=== PATIENT | male | born 1970 | race Caucasian/White ===

== ENCOUNTER → 2020-02-03 12:35 | Outpatient (CLI) | payer BC, SELFPAY ==
[2020-02-03 16:27] LABS: Coronavirus 19 IgG Antibody Negative (Negative); Coronavirus 19 IgM Antibody Negative (Negative)
== END ==
PROVIDERS: Visit Provider Internal Medicine Gastroenterology
DX: Z01.818 Encounter for other preprocedural examination (principal); Z12.11 Encounter for screening for malignant neoplasm of colon
CPT/HCPCS: 36415; 86328

== ENCOUNTER 2020-02-05 07:14 | Day surgery (SDC) | payer BC, SELFPAY ==
[2020-02-03 13:47] VITALS: BMI 31.3
[2020-02-05] VITALS (7 sets, daily range): BP systolic 114–142; BP diastolic 66–93; PULSE 69–90; RESP 18; TEMP 36.3–36.8; O2SAT 95–98
--- NOTE | 2020-02-05 08:42 | HMH.PROC ---
[facility] Procedure Note Procedure Note:: Colonoscopy Procedure Report: Colonoscopy with cold snare polypectomy and hemorrhoid band ligation Endoscopist: Jensen Hobbs II, MD Referring physician: ROSIE Collazo/Mohamud Page MD Date of Procedure: February 05, 2020 Equipment: Olympus 180 variable stiffness pediatric colonoscope Sedation: MAC sedation Indication: Mr. Patel is a 49-year-old gentleman who reports bright red rectal bleeding for the last 6 months. This is blood that he notes both coating the stool and on the toilet tissue. It is not generally mixed in with the stool. He does report primarily diarrhea with loose to watery stools. He will occasionally have firmer hard bowel movements. He does report moderate gassiness and bloating. He reports no significant abdominal pain but did have some pain this past week with his bleeding. He reports no weight loss or family history of colon cancer. He reports no family history of colitis or Crohn's disease. This is his first colonoscopy. Procedure: Prior to the procedure, a history and physical exam was performed, and patient's medications and allergies were reviewed. The risks, benefits and alternatives of the sedation and procedure were discussed with the patient. All questions were answered and informed consent was obtained. The patient was brought to the procedure room. Patient identification and proposed procedure were verified by the physician and the nurse. The patient was placed in a left lateral decubitus position and the scope was passed under direct vision. Throughout the procedure, the patient's blood pressure, pulse, and oxygen saturations were monitored continuously. The colonoscopy was accomplished without difficulty. The patient tolerated the procedure well. Findings: On digital rectal examination there was normal rectal tone. There were no external hemorrhoids but there was an external hemorrhoidal tag. The prostate was 2-3+, mildly firm but symmetric without nodules. The colonoscope was introduced through the anal canal to the rectum and advanced to the cecum. The ileocecal valve and appendiceal orifice were identified. The scope was advanced a short distance into the ileum which appeared grossly normal. The scope was then withdrawn into the colon. The cecum had a single 6 mm polyp and there was a second 3 mm transverse colon polyp both of which were removed via cold snare polypectomy. There were mildly scattered diverticuli throughout the colon. The remainder of the colonic mucosa was normal. The rectum itself was normal. Upon retroflexion within the rectum there were grade 2 internal hemorrhoids. 3 columns of hemorrhoids were banded using 3 bands with excellent ligation effect. The preparation was excellent throughout with Snelling Preparation Score of 9. The cecal time was 14 minutes. Impression: 1. Diminutive colonic polyps x2 2. Mild pandiverticulosis 3. Grade 2 internal hemorrhoids status post band ligation x3 Plan: I will encourage bulk fiber supplementation (FiberCon 2 tablets p.o. twice daily) on a long-term daily maintenance basis. I will follow-up the polyp histology and recommend repeat screening/surveillance colonoscopy again in 5 to 10 years based upon pathology.
--- NOTE | 2020-02-05 09:02 | P.PN_ITS ---
[facility] Anesthesia Checklist - Structural Data Admitted From: Home Planned Operative Procedure/s: colonoscopy Consent for Planned Operative Procedure(s) Verified: Yes - Airway Assessment C-Spine Mobility Assessed: Yes TMJ Mobility Assessed: Yes Dentition: Good Dentition - Neurological Assessment Level of Consciousness: Awake, Alert, Appropriate - Anesthesia Plan Anesthesia Risk discussed: Yes Anesthesia Plan: Verified ASA Class: II Anesthesia Type: MAC [facility] History I have reviewed the patient's past medical history: Yes 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: Reports:: Gastroesophageal Reflux Disease(GERD) Denies:: Cancer, Diabetes Mellitus Type 1, Diabetes Mellitus Type 2, Internal Pacemaker, MRSA, Seizures *Have you ever received a pneumonia vaccine?: No *Have you received a flu vaccine this season?: Yes Anesthesia experience/problems:: none Other Surgeries: Yes: EGD, Other. No: Pacemaker Amputation: No Fractures: No - *Social History Educational Level: Completed [employer] Smoking Status: Never smoker Alcohol Intake: current Alcohol Intake Frequency:: 3 or more drinks per day Substance Use Type: denies use *Occupational Status:: employed Housing: house Household Members: spouse *Travel in the last 8 weeks: None Family Hx:: No significant family history
== END 2020-02-05 10:05 | disposition home or self-care (01) ==
LOC: OUTP 07:17
PROVIDERS: PCP Family Medicine; Visit Provider Internal Medicine Gastroenterology
PROC: 0DJD8ZZ Inspection of Lower Intestinal Tract, Via Natural or Artificial Opening Endoscopic (ICD-10-PCS; CPT 45378; principal; 2020-02-05 08:30)
DX: Z12.11 Encounter for screening for malignant neoplasm of colon; K63.5 Polyp of colon; K57.30 Diverticulosis of large intestine without perforation or abscess without bleeding; K64.1 Second degree hemorrhoids; K21.9 Gastro-esophageal reflux disease without esophagitis; G47.33 Obstructive sleep apnea (adult) (pediatric); Z87.19 Personal history of other diseases of the digestive system
CPT/HCPCS: 45385; 45398

== ENCOUNTER → 2020-03-21 11:18 | Outpatient (CLI) | payer BC, SELFPAY ==
[2020-03-21 12:35] LABS: Adenovirus,PCR Not Detected (NotDetected); Bordetella Pertussis Not Detected (NotDetected); Chlamydophila Pneumoniae, PCR Not Detected (NotDetected); Coronavirus 229E Not Detected (NotDetected); Coronavirus NL63 Not Detected (NotDetected); Coronavirus OC43 Not Detected (NotDetected); Coronovirus HKU1,PCR Not Detected (NotDetected); Human Metapneumovirus Not Detected (NotDetected); Influenza A, PCR Not Detected (NotDetected); Influenza AH1, 2009 Not Detected (NotDetected); Influenza AH1, PCR Not Detected (NotDetected); Influenza AH3,PCR Not Detected (NotDetected); Influenza B, PCR Not Detected (NotDetected); Mycoplasma Pneumoniae, PCR Not Detected (NotDetected); Parainfluenza 1, PCR Not Detected (NotDetected); Parainfluenza 2, PCR Not Detected (NotDetected); Parainfluenza 3, PCR Not Detected (NotDetected); Parainfluenza 4, PCR Not Detected (NotDetected); Respiratory Syncytial Virus Not Detected (NotDetected)
[2020-03-21 15:38] LABS: Rhinovirus/Enterovirus Detected (NotDetected)
[2020-03-22 16:13] LABS: Covid-19 Nasal PCR Sendout Lex NOT DETECTED
== END ==
PROVIDERS: PCP Nurse Practitioner; Visit Provider Nurse Practitioner
DX: Z03.818 Encounter for observation for suspected exposure to other biological agents ruled out (principal); B34.1 Enterovirus infection, unspecified
CPT/HCPCS: 87486; 87581; 87633; 87798; U0004

== ENCOUNTER 2021-06-21 07:23 | Observation (INO) | payer BC, SELFPAY ==
[2021-06-21] VITALS (18 sets, daily range): BP systolic 123–172; BP diastolic 62–135; PULSE 69–90; RESP 14–20; TEMP 36.6–36.8; O2SAT 94–98; BMI 29.5; BMI 29.8
--- NOTE | 2021-06-21 07:41 | ECG_ITS ---
APPROVED REPORT Exam: Resting ECG HR:81 bpm ECG Measurements Heart Rate 81 AXES NM 198 P 70 QRSd 88 QRS 42 QT 352 T 36 QTc 408 Conclusion Normal sinus rhythm Normal ECG Electronically signed by : Mohamud Wynn MD 06/21/2021 17:27:41
--- NOTE | 2021-06-21 08:07 | XR_ITS ---
PROCEDURE: XR CHEST PORTABLE CLINICAL HISTORY: diaphoretic COMPARISON: CT [facility] CT CHEST W/ CONTRAST from 03/01/2013 FINDINGS: The cardiomediastinal silhouette and pulmonary vascularity are within normal limits. The lungs are clear without infiltrates, suspicious nodules, or pleural effusions. No acute bony abnormalities. IMPRESSION: No acute findings. Dictated by: Casimiro Wetzel MD 06/21/2021 08:16 Casimiro Wetzel MD in [place] 06/21/2021 08:16
--- NOTE | 2021-06-21 08:14 | CT_ITS ---
PROCEDURE INFORMATION: Exam: CT Abdomen And Pelvis With Contrast Exam date and time: 06/21/2021 8:14 AM Age: 50 years old Clinical indication: Abdominal pain; Epigastric; Additional info: Abd pain TECHNIQUE: Imaging protocol: Computed tomography of the abdomen and pelvis with contrast. Radiation optimization: All CT scans at this facility use at least one of these dose optimization techniques: automated exposure control; mA and/or kV adjustment per patient size (includes targeted exams where dose is matched to clinical indication); or iterative reconstruction. Contrast material: ISOVUE; Contrast volume: 75 ml; Contrast route: IV; COMPARISON: CR XR CHEST PORTABLE 06/21/2021 8:13 AM FINDINGS: Lungs: Calcified granulomas in the lungs. There is a 7 mm right lower lobe pulmonary nodule on series 3, image 9. Liver: Normal. No mass. Gallbladder and bile ducts: Normal. No calcified stones. No ductal dilation. Pancreas: Normal. No ductal dilation. Spleen: Left upper quadrant splenule. Adrenal glands: Normal. No mass. Kidneys and ureters: Normal. No hydronephrosis. Stomach and bowel: There is dilation of a small bowel loop in the right lower quadrant to 3 cm. Adjacent small bowel loops demonstrate mural thickening with some mild surrounding inflammatory change. There are two points of sharp angulation of bowel loops in the region on series 601, image 31. Appendix: No evidence of appendicitis. Intraperitoneal space: Focal mesenteric edema in the right lower quadrant with small volume adjacent free fluid. Vasculature: Unremarkable. No abdominal aortic aneurysm. Lymph nodes: Partially imaged calcified right hilar lymph node. Urinary bladder: Unremarkable as visualized. Reproductive: Unremarkable as visualized. Bones/joints: Unremarkable. No acute fracture. Soft tissues: Unremarkable. IMPRESSION: 1. Findings are concerning for early closed-loop small-bowel obstruction in the right lower quadrant. There may be some early venous congestion in the mesentery and small bowel wall, but no specific evidence for ischemia at this time. No evidence of perforation. 2. There is a 7 mm right lower lobe pulmonary nodule. For patients at low risk (minimal or absent history of smoking and of other known risk factors), recommend CT Chest at 3-6 months, then consider CT Chest at 18-24 months. For patients at high risk (history of smoking or of other known risk factors), recommend CT Chest at 3-6 months, then CT Chest at 18-24 months. (Reference: Valerio) REFERENCES: Valerio Brar et al. Guidelines for Management of Incidental Pulmonary Nodules Detected on CT Images: From the Fleischner Society 2017. Radiology. 2017;284(1):228-243. THIS REPORT CONTAINS FINDINGS THAT MAY BE CRITICAL TO PATIENT CARE. The findings were verbally communicated via telephone conference with Garfield Fox at 9:08 AM EDT on 06/21/2021. The findings were acknowledged and understood.
[2021-06-21 08:23] LABS: Basophils # 0.1 K/mm3 (0-0.2); Basophils % 0.8 % (0.1-2.0); Eosinophils # 0.1 K/mm3 (0.0-0.4); Eosinophils % 0.9 % (0.1-12.0); Hematocrit 44.3 % (42.0-52.0); Hemoglobin 15.3 g/dL (14.1-18.0); Lymphocytes # 0.9 K/mm3 (0.7-4.5); Lymphocytes % 13.4 % (10-50); Mean Corpuscular HGB Conc 34.6 g/dL (31.8-35.4); Mean Corpuscular Volume 89.6 fl (80-94); Mean Platelet Volume 6.3 fl (7.4-10.4); Monocytes # 0.3 K/mm3 (0.1-1.0); Monocytes % 4.2 % (1.7-9.3); Neutrophils # 5.5 K/mm3 (1.8-7.8); Neutrophils % 80.6 % (37.0-80.0); Platelet Count 269 K/mm3 (142-424); Red Blood Count 4.94 M/mm3 (4.60-6.20); Red Cell Distribution Width 14.2 % (11.5-17.5); White Blood Count 6.9 K/mm3 (4.8-10.8)
[2021-06-21 08:26] LABS: Chloride 102 mmol/L (98-107)
[2021-06-21 08:27] LABS: Sodium 138 mmol/L (136-145)
[2021-06-21 08:29] LABS: Blood Urea Nitrogen 14 mg/dl (9-20); Creatinine Clearance Estimated 140 mL/min (50-200); Estimated Glomerular Filt Rate 102 ml/min (>60); GFR (African American) 123 ML/MIN (>60)
[2021-06-21 08:30] LABS: Calcium 9.5 mg/dl (8.4-10.2); Carbon Dioxide 25 mmol/L (22.0-30.0); Glucose 101 mg/dl (74-100)
[2021-06-21 08:43] LABS: Troponin I < 0.01 ng/ml (0.00-0.034)
--- NOTE | 2021-06-21 09:27 | PC.NURSE ---
paging general surgery
--- NOTE | 2021-06-21 09:28 | HMH.EDABDPAI ---
ED Disposition Clinical Impression: Small bowel obstruction Disposition: Admitted as Observation Condition on Discharge: Undetermined Referrals: Raffaele Savage MD [Primary Care Provider] - - Critical Care Critical Care Time: No Attestation: On 06/21/21, the high probability of a clinically significant, sudden or life threatening deterioration of the following system(s) required my full and direct attention, intervention and personal management. The time I documented below is in addition to time spent performing reported procedures but includes the following listed in this critical care notation. Medical Decision Making - Erik Inquiry Pt receiving controlled substance: No Vital Signs: 06/21/21 07:49 06/21/21 07:55 Temperature 97.8 F Temperature Source Oral Pulse Rate 84 Pulse Rate [Right Radial] 87 Respiratory Rate 18 18 Blood Pressure 165/110 H Blood Pressure [Right Arm] 167/98 H Blood Pressure Mean [Right Arm] 121 Blood Pressure Source [Right Arm] Automatic Cuff Blood Pressure Position [Right Arm] Sitting 02 Sat by Pulse Oximetry 98 96 Oxygen Delivery Method Room Air Room Air - Lab Data Lab Results 06/21/21 07:45: WBC 6.9, RBC 4.94, Hgb 15.3, Hct 44.3, MCV 89.6, MCH 31.0, MCHC 34.6, RDW 14.2, Plt Count 269, MPV 6.3 L, Neut % (Auto) 80.6 H, Lymph % (Auto) 13.4, [place] % (Auto) 4.2, Eos % (Auto) 0.9, Baso % (Auto) 0.8, Neut # (Auto) 5.5, Lymph # (Auto) 0.9, [place] # (Auto) 0.3, Eos # (Auto) 0.1, Baso # (Auto) 0.1 06/21/21 07:45: Sodium 138, Potassium 4.0, Chloride 102, Carbon Dioxide 25, Anion Gap 15.0, BUN 14, Creatinine 0.80, Estimated Creat Clear 140, Estimated GFR 102, Est GFR ( Amer) 123, Glucose 101 H, Calcium 9.5, Troponin I < 0.01 Result diagrams: 06/21/21 07:45 06/21/21 07:45 Orders (Tests/Meds): ED MEDICATIONS Generic Name Dose Route Start Last Admin Trade Name Freq PRN Reason Stop Dose Admin Sodium Chloride 8 ml 06/21/21 08:17 Sodium Chloride 0.9% 10ml Vial IV 07/21/21 08:16 NEEDED PRN dilute pepcid Discontinued Medications Generic Name Dose Route Start Last Admin Trade Name Nika PRN Reason Stop Dose Admin Belladonna Alkaloids 60 ml 06/21/21 08:17 06/21/21 08:23 Gi Cocktail 60ml Udc PO 06/21/21 08:18 60 ml ONCE ONE Administration Famotidine 20 mg 06/21/21 08:17 06/21/21 08:23 Famotidine 20mg/2ml Vial IV 06/21/21 08:18 20 mg ONCE ONE Administration Iopamidol 75 ml 06/21/21 08:39 06/21/21 08:41 Iopamidol-370 (76%);100ml Bottle IV 06/21/21 08:40 75 ml ONCE ONE Administration Sodium Chloride 10 ml 06/21/21 08:39 06/21/21 08:41 Sodium Chloride 0.9% 10ml Syr (Rad Only) IV 06/21/21 08:40 10 ml ONCE ONE Administration ORDERS Category Date Time Status XR chest 2V Stat Exams 06/21/21 07:48 Taken Rapid PCR Covid and Flu A/B Stat Lab 06/21/21 09:24 Ordered Troponin I Q3H Lab 06/21/21 11:00 Ordered Troponin I Q3H Lab 06/21/21 14:00 Ordered Medical Decision Narrative: In summary, the patient is a 50-year-old male presenting for evaluation of acute progressive abdominal pain and distention. He is in no acute distress, afebrile and hemodynamically stable, nontoxic in appearance. Physical exam demonstrates comfortable pain mild mild abdominal distention, mild diffuse abdominal tenderness to palpation without rigidity or guarding, normal cardiopulmonary exam. Differential diagnosis includes but is not limited to small bowel obstruction, electrolyte abnormality, gastritis or peptic ulcer disease. Will obtain basic laboratory analysis, CT scan of the abdomen pelvis IV contrast and reassess clinically. Reassessment: Patient continues to be in no acute distress and hemodynamically stable. Laboratory analysis unremarkable. CT scan is concerning for possible partial small bowel obstruction. General surgeon Dr. Mascorro was consulted, and will admit under him to be observed and further evaluate
[2021-06-21 09:34] LABS: Coronavirus 19, PCR Not Detected (NotDetected); Influenza A, PCR Not Detected (NotDetected); Influenza B, PCR Not Detected (NotDetected)
--- NOTE | 2021-06-21 09:35 | PC.NURSE ---
spoke with Dr. Sanchez who advised to admit the pt to his service. Notified care management
--- NOTE | 2021-06-21 10:44 | HMH.PHAINT ---
MEDICATION RECONCILIATION COMPLETE USING SURESCRIPTS AND PREVIOUS OFFICE VISIT
--- NOTE | 2021-06-21 11:07 | PC.NURSE ---
Pt waiting on bed upstairs. Updated pt on POC and what he waiting on. Pt ok with plan.
[2021-06-21 11:42] LABS: Troponin I < 0.01 ng/ml (0.00-0.034)
--- NOTE | 2021-06-21 11:48 | PC.NURSE ---
Dr. Sanchez at bedside
--- NOTE | 2021-06-21 11:56 | FL_ITS ---
PROCEDURE: FL SMALL BOWEL FOLLOW THROUGH CLINICAL INDICATION: Possible closed loop bowel obstruction. COMPARISON: CT CT ABDOMEN PELVIS W CON from 06/21/2021 FINDINGS: [employer] exam demonstrates contrast within the urinary bladder and bilateral kidneys. Bowel gas pattern is nonspecific. There is no evidence of small-bowel obstruction. Spot views of the terminal ileum did demonstrate some mild bowel wall thickening. There was an unusual mildly distended appearing loop of small bowel in the right lower quadrant which had a somewhat forked appearance. Several spot views were obtained of this region which may only represent overlapping small bowel. Small bowel diverticulum would be an additional consideration. This may represent a mildly distended loop noted on the CT scan IMPRESSION: No evidence of small-bowel obstruction. There is normal transit time. Suspect mildly thickened terminal ileum. Unusual mildly distended loop of small bowel in the right lower quadrant which may only be due to overlapping bowel loops versus small bowel diverticulum. Dictated by: Casimiro Wetzel MD 06/21/2021 19:46 Casimiro Wetzel MD in [place] 06/21/2021 19:46
--- NOTE | 2021-06-21 12:09 | HMH.GSHP ---
HPI HPI: This is a 50-year-old gentleman who presented to the emergency department with increasing abdominal pain and nausea/vomiting. He developed fairly acute-onset pain early this morning. No definite fevers. He did develop fairly significant nausea with emesis. Currently he states that the nausea has calm down . He continues to have some abdominal pain but states that it is not as bad as it was before . He states that he had a fairly soft and kind of small bowel movement this morning (note that he reported no bowel movements for 3 days to the emergency department physician). He states that he never really passes gas . Abdominal Pain HPI - General Chief Complaint: Chest Pain Stated Complaint: stomach pains Time Seen by Provider: 06/21/21 08:15 Mode of Arrival: Ambulatory Source of Information: Patient Limitations: No Limitations Description of Symptoms (Recalled from ER Triage Doc. by RN): Pt to ed per pvt car. Pt states he woke up this morning and developed a burning pain across his upper chest while he was getting ready for work. Pt reports the pain subsided on the way to work. Pt reports a hx of acid reflux and states he thought he was having an episode. Pt states he was at work for approx 1 hour when the chest pain started back, he became nauseous and vomited. Pt reports breaking out in a sweat. On arrival to ed pt states he is having lower abd pain and burning in his chest. - History of Present Illness HPI narrative: Patient is a 50-year-old male with past medical history of irritable bowel syndrome with alternating diarrhea and constipation who presents for evaluation of progressive abdominal pain and distention for the last 5 hours. He states that he awoke this morning around 4:30 AM with cramping diffuse abdominal pain worse in the upper part of his abdomen. He admits to persistent nausea with one episode of nonbilious, nonbloody vomiting. He denies any chest pain, fever chills, headache or vision changes, changes in urinary habits, denies any bowel movement for the last 3 days, has not passed gas for a day. He denies any new extremity swelling or pain. MD complaint: abdominal pain Onset (ago): hour(s) Consistency: constant Location: diffuse Severity: mild Quality: cramping Radiation: none Migration to: no migration Relieving factors: nothing Exacerbating factors: nothing Associated symptoms: nausea, vomiting [facility] History 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: Reports:: Gastroesophageal Reflux Disease(GERD) Denies:: Cancer, Diabetes Mellitus Type 1, Diabetes Mellitus Type 2, Internal Pacemaker, MRSA, Seizures *Have you ever received a pneumonia vaccine?: Yes *Have you received a flu vaccine this season?: No Other Surgeries: Yes: EGD, Other. No: Pacemaker Amputation: No Fractures: No - *Social History Smoking Status: Never smoker Alcohol Intake: current Alcohol Intake Frequency:: 3 or more drinks per day Substance Use Type: denies use *Occupational Status:: employed Housing: house Household Members: spouse *Travel in the last 8 weeks: None Family Hx:: No significant family history Review of Systems - Constitutional Denies chills - Eyes Denies change in vision - ENT Denies difficulty swallowing - *Cardiovascular Denies shortness of breath - *Respiratory Denies cough - *Gastrointestinal Reports abdominal pain, Reports nausea, Reports vomiting - *Genitourinary Denies blood in urine - *Musculoskeletal Denies deformity - Integumentary/Breasts Denies new lesions - *Neurologic Denies abnormal movements - Psychiatric Denies anxiety - Endocrine Denies cold intolerance - Hematologic/Lymphatic Denies easy bleeding - Allergic/Immunologic Denies wheezing Meds Home Medications Medication Instructions Recorded Confirmed Type omeprazole 40 mg capsule,delayed 40 mg PO DAILY 90 Days #90 cap 10/31/18 06/21/21 History release Allergies Allergy/AdvReac Type Severity Reaction Status Da
--- NOTE | 2021-06-21 12:38 | PC.NURSE ---
MEdicated pt per MAR. PT advises he now has some relief.
--- NOTE | 2021-06-21 13:08 | PC.NURSE ---
pt to rad for small bowel follow through
[2021-06-21 16:03] LABS: Troponin I < 0.01 ng/ml (0.00-0.034)
--- NOTE | 2021-06-21 16:48 | PC.NURSE ---
pt arrived to the floor at this time.
[2021-06-22 04:00] VITALS: BP 130/73; PULSE 70; RESP 20; TEMP 36.6; O2SAT 98
[2021-06-22 04:51] VITALS: BMI 29.9
--- NOTE | 2021-06-22 06:00 | XR_ITS ---
PROCEDURE INFORMATION: Exam: XR Complete Acute Abdomen Series Including Chest Exam date and time: 06/22/2021 6:00 AM Age: 50 years old Clinical indication: Abdominal pain; Additional info: Sbo vs enteritis TECHNIQUE: Imaging protocol: XR complete acute abdomen series, including 2 or more views of the abdomen and a single view chest. COMPARISON: CT ABDOMEN PELVIS W CON 06/21/2021 8:30 AM FINDINGS: Lungs: The lungs are clear without consolidation. Pleural spaces: There is no pleural effusion or pneumothorax. Heart/Mediastinum: The cardiac silhouette, mediastinal contours and hilar shadows are normal. Gastrointestinal tract: The bowel gas pattern is nonspecific without a high-grade obstruction or ileus. There is residual contrast within the colon and appendix. No contrast extravasation is seen. Intraperitoneal space: There is no subdiaphragmatic free air. Vasculature: There are a few phleboliths in the pelvis. Bones/joints: The bones are grossly normal. Soft tissues: Normal. IMPRESSION: No acute findings identified.
[2021-06-22 06:21] LABS: Basophils % 0.5 % (0.1-2.0); Eosinophils # 0.1 K/mm3 (0.0-0.4); Eosinophils % 2.4 % (0.1-12.0); Hematocrit 45.2 % (42.0-52.0); Hemoglobin 14.1 g/dL (14.1-18.0); Lymphocytes # 1.2 K/mm3 (0.7-4.5); Mean Corpuscular HGB Conc 31.3 g/dL (31.8-35.4); Mean Corpuscular Hemoglobin 28.3 pg (27.0-31.2); Mean Corpuscular Volume 90.4 fl (80-94); Mean Platelet Volume 6.5 fl (7.4-10.4); Monocytes # 0.3 K/mm3 (0.1-1.0); Monocytes % 6.1 % (1.7-9.3); Neutrophils # 3.6 K/mm3 (1.8-7.8); Platelet Count 258 K/mm3 (142-424); Red Blood Count 4.99 M/mm3 (4.60-6.20); Red Cell Distribution Width 14.3 % (11.5-17.5); White Blood Count 5.3 K/mm3 (4.8-10.8)
[2021-06-22 06:27] LABS: Chloride 102 mmol/L (98-107)
[2021-06-22 06:28] LABS: Potassium 3.8 mmoL/L (3.5-5.1); Sodium 139 mmol/L (136-145)
[2021-06-22 06:31] LABS: Anion Gap 12.8 mEq/L (5-15); Blood Urea Nitrogen 14 mg/dl (9-20); Calcium 9.2 mg/dl (8.4-10.2); Carbon Dioxide 28 mmol/L (22.0-30.0); Creatinine Clearance Estimated 113 mL/min (50-200); Estimated Glomerular Filt Rate 79 ml/min (>60); GFR (African American) 95 ML/MIN (>60); Glucose 105 mg/dl (74-100)
--- NOTE | 2021-06-22 06:39 | HMH.GSPN ---
Subjective Patient reports: no new complaints, feels better, still having pain, pain is less Progress Note: A&P (1) Small bowel obstruction Status: Acute Assessment and plan: Small bowel follow-through and follow-up flat/upright films reveal no sign of small bowel obstruction. (2) Enteritis Status: Acute Assessment and plan: The patient symptoms and radiographic findings most likely relate to some form of enteritis. He has improved over the last 24 hours. Slowly advance diet Possible DC home later today Exam Vital signs and Labs for Last 24 Hours: Temp Pulse Resp BP Pulse Ox 97.8 F 70 20 130/73 98 06/22/21 04:00 06/22/21 04:00 06/22/21 04:00 06/22/21 04:00 06/22/21 04:00 Laboratory Results - last 24 hr 06/21/21 07:45: WBC 6.9, RBC 4.94, Hgb 15.3, Hct 44.3, MCV 89.6, MCH 31.0, MCHC 34.6, RDW 14.2, Plt Count 269, MPV 6.3 L, Neut % (Auto) 80.6 H, Lymph % (Auto) 13.4, [place] % (Auto) 4.2, Eos % (Auto) 0.9, Baso % (Auto) 0.8, Neut # (Auto) 5.5, Lymph # (Auto) 0.9, [place] # (Auto) 0.3, Eos # (Auto) 0.1, Baso # (Auto) 0.1 06/21/21 07:45: Sodium 138, Potassium 4.0, Chloride 102, Carbon Dioxide 25, Anion Gap 15.0, BUN 14, Creatinine 0.80, Estimated Creat Clear 140, Estimated GFR 102, Est GFR ( Amer) 123, Glucose 101 H, Calcium 9.5, Troponin I < 0.01 06/21/21 09:30: SARS-CoV-2 (PCR) Not detected, Influenza A Untype (PCR) Not detected, Influenza Type B (PCR) Not detected 06/21/21 11:00: Troponin I < 0.01 06/21/21 15:22: Troponin I < 0.01 06/22/21 05:57: WBC 5.3, RBC 4.99, Hgb 14.1, Hct 45.2, MCV 90.4, MCH 28.3, MCHC 31.3 L, RDW 14.3, Plt Count 258, MPV 6.5 L, Neut % (Auto) 68.0, Lymph % (Auto) 23.0, [place] % (Auto) 6.1, Eos % (Auto) 2.4, Baso % (Auto) 0.5, Neut # (Auto) 3.6, Lymph # (Auto) 1.2, [place] # (Auto) 0.3, Eos # (Auto) 0.1, Baso # (Auto) 0.0 06/22/21 05:57: Sodium 139, Potassium 3.8, Chloride 102, Carbon Dioxide 28, Anion Gap 12.8, BUN 14, Creatinine 1.00 D, Estimated Creat Clear 113, Estimated GFR 79, Est GFR ( Amer) 95 D, Glucose 105 H, Calcium 9.2 I & O for Last 24 hours: Intake & Output 06/19/21 06/20/21 06/21/21 06/22/21 11:59 11:59 11:59 11:59 Output Total 650 / 650 Balance -650 / -650 Weight 200 lb 202 lb Radiology Reports for the Last 24 Hours: Small bowel follow-through shows no sign of obstruction. Follow-up films this morning show contrast in the colon. - Constitutional no acute distress - *Routine Respiratory Exam Absent: respiratory distress - *Routine Cardiovascular Exam Present: RRR - *Routine Abdominal Exam Present: soft
--- NOTE | 2021-06-22 07:17 | HMH.PHAVTE ---
[facility] Pharmacy VTE Monitoring - Patient Demographics Admission date: 06/21/21 Report Date: 06/22/21 Time: 07:17 Allergies/Adverse Reactions: Patient Allergies No Known Allergies Allergy (Verified 02/03/20 13:28) Height: 1.75 m Weight: 91.626 kg Patient Problems: Current Active Problems Small bowel obstruction (Acute) Enteritis (Acute) - VTE Risk Labs: VTE Related Lab Results Hgb 14.1 g/dL (14.1-18.0) 06/22/21 05:57 Hct 45.2 % (42.0-52.0) 06/22/21 05:57 Plt Count 258 K/mm3 (142-424) 06/22/21 05:57 BUN 14 mg/dl (9-20) 06/22/21 05:57 Creatinine 1.00 mg/dl (0.66-1.25) D 06/22/21 05:57 Estimated Creat Clear 113 mL/min (50-200) 06/22/21 05:57 Was VTE Risk Assessment Performed: Yes VTE Score: 1 VTE Risk Level: Very Low Risk Clinical Trial Participant: No - Prophylaxis VTE Prophylaxis Ordered?: Yes Types of VTE Prophylaxis: TEDS Knee High
[2021-06-22 08:00] VITALS: BP 145/75; PULSE 87; RESP 18; TEMP 36.9; O2SAT 97; O2SAT 98
--- NOTE | 2021-06-22 12:39 | HMH.DCSUM ---
General - General Admission date:: 06/21/21 Discharge date: 06/22/21 HPI HPI: This is a 50-year-old gentleman who presented to the emergency department with increasing abdominal pain and nausea/vomiting. He developed fairly acute-onset pain early this morning. No definite fevers. He did develop fairly significant nausea with emesis. Currently he states that the nausea has calm down . He continues to have some abdominal pain but states that it is not as bad as it was before . He states that he had a fairly soft and kind of small bowel movement this morning (note that he reported no bowel movements for 3 days to the emergency department physician). He states that he never really passes gas . Abdominal Pain HPI - General Chief Complaint: Chest Pain Stated Complaint: stomach pains Time Seen by Provider: 06/21/21 08:15 Mode of Arrival: Ambulatory Source of Information: Patient Limitations: No Limitations Description of Symptoms (Recalled from ER Triage Doc. by RN): Pt to ed per pvt car. Pt states he woke up this morning and developed a burning pain across his upper chest while he was getting ready for work. Pt reports the pain subsided on the way to work. Pt reports a hx of acid reflux and states he thought he was having an episode. Pt states he was at work for approx 1 hour when the chest pain started back, he became nauseous and vomited. Pt reports breaking out in a sweat. On arrival to ed pt states he is having lower abd pain and burning in his chest. - History of Present Illness HPI narrative: Patient is a 50-year-old male with past medical history of irritable bowel syndrome with alternating diarrhea and constipation who presents for evaluation of progressive abdominal pain and distention for the last 5 hours. He states that he awoke this morning around 4:30 AM with cramping diffuse abdominal pain worse in the upper part of his abdomen. He admits to persistent nausea with one episode of nonbilious, nonbloody vomiting. He denies any chest pain, fever chills, headache or vision changes, changes in urinary habits, denies any bowel movement for the last 3 days, has not passed gas for a day. He denies any new extremity swelling or pain. MD complaint: abdominal pain Onset (ago): hour(s) Consistency: constant Location: diffuse Severity: mild Quality: cramping Radiation: none Migration to: no migration Relieving factors: nothing Exacerbating factors: nothing Associated symptoms: nausea, vomiting Hospital Course Hospital Course: The patient convalesced well. His symptoms continued to improve throughout his hospital stay. A small bowel follow-through revealed no sign of obstruction. Follow-up flat/upright films on the morning of discharge revealed a fairly normal bowel gas pattern with contrast in the colon. A combination of the patient's history, physical, CT scan, and small bowel series were all more consistent with enteritis as opposed to small bowel obstruction. Condition at discharge: At the time of discharge the patient was afebrile with stable and normal vital signs. He was tolerating advancement of his diet and ambulating without difficulty. Objective Vital signs: Temp Pulse Resp BP Pulse Ox 98.4 F 87 18 145/75 H 97 06/22/21 08:00 06/22/21 08:00 06/22/21 08:00 06/22/21 08:00 06/22/21 08:00 no acute distress - *Routine HEENT Exam Head: Present: normocephalic Eye: Present: EOMI ENT: Present: mucous membranes moist - *Routine Neck Exam Present: full ROM - Routine Chest/Breast/Axilla Exam Chest wall: Absent: tenderness - *Routine Respiratory Exam Absent: respiratory distress - *Routine Cardiovascular Exam Present: RRR - *Routine Abdominal Exam Present: soft - *Routine Rectal Exam Patient deferred: visual exam - *Routine Exam Patient deferred: penile exam - *Routine Extremities Exam Present: full ROM. Absent: cyanosis, clubbing, edema - Routine Back/Sp
== END 2021-06-22 13:37 | disposition home or self-care (01) ==
LOC: ER 09:37 → 2ND 06-22 07:29
PROVIDERS: Admitting Provider Surgery; Emergency Provider Student in an Organized Health Care Education/Training Program; PCP Emergency Medicine; Visit Provider Surgery
DX: K21.9 Gastro-esophageal reflux disease without esophagitis; Z20.822 Contact with and (suspected) exposure to COVID-19; K52.9 Noninfective gastroenteritis and colitis, unspecified
CPT/HCPCS: 36415; 71045; 71046; 74021; 74177; 74250; 80048; 84484; 85025; 93005; 96374; 96375; 96376; 99282; C9803; G0378; J2405; Q9967; U0003; U0005

== ENCOUNTER 2021-07-26 19:42 | Emergency (ER) | payer BC, SELFPAY ==
[2021-07-26 20:21] VITALS: BP 156/102; PULSE 95; RESP 16; TEMP 36.7; O2SAT 98; BMI 30.4
--- NOTE | 2021-07-26 21:19 | HMH.EDUTC ---
[facility] [place] Clinical Impression: Need for Tdap vaccination Laceration of left hand Qualifiers: Encounter type: initial encounter Foreign body presence: without foreign body Qualified Code(s): S61.412A - Laceration without foreign body of left hand, initial encounter Disposition: Home, Self-Care Condition on Discharge: Good Instructions: How to Care for a Laceration After Repair, DI for Laceration Repair Additional Instructions: Keep the wound clean and dry. Keep a dressing on it if you are going to be getting it dirty. Watch the for signs of infection, such as redness, swelling, drainage, fever. etc. Give tylenol or ibuprofen for pain. Follow up with your regular doctor. Return in 10 to 12 days to have the sutures removed. GO TO THE ER FOR ANY WORSENING SYMPTOMS OR CONCERNS. Prescriptions: cephALEXin [cephALEXin 500mg capsule] 500 mg PO Q6H 10 Days #40 cap Transmission Status: Received by [id number] Referrals: Raffaele Savage MD [Primary Care Provider] - Forms: Work/School Release Time of Disposition: 22:16 Medical Decision Making - Medical Records Medical records reviewed: No: I reviewed the patient's medical records. - Erik Inquiry Pt receiving controlled substance: No Vital Signs: 07/26/21 20:21 Temperature 98.1 F Temperature Source Oral Pulse Rate [Left] 95 H Respiratory Rate 16 Blood Pressure [Right Arm] 156/102 H Blood Pressure Mean [Right Arm] 120 02 Sat by Pulse Oximetry 98 Orders (Tests/Meds): ED MEDICATIONS Discontinued Medications Generic Name Dose Route Start Last Admin Trade Name Freq PRN Reason Stop Dose Admin Tetanus/Reduced Diphtheria/Acell Pertussis 0.5 ml 07/26/21 21:21 07/26/21 21:38 Tet/Diphth/Pert-Adult 0.5ml Syringe IM 07/26/21 21:22 0.5 ml .ONCE ONE Administration [facility] [place] - General Stated complaint: AO sliced L hand cutting up deer Time Seen by Provider: 07/26/21 21:19 Mode of Arrival: Ambulatory Source of Information: Patient Limitations: No Limitations Description of Symptoms (Recalled from Triage Doc. by RN): pt was cleaning a deer and lacerated his L palm. HEENT Symptoms (Recalled from RN notes): No Resp Symptoms (Recalled from RN notes): No Skin Symptoms (Recalled from RN notes): Yes (lac to L hand) MS Symptoms (Recalled from RN notes): No Functional Status (Recalled from RN notes): na - History of Present Illness Provider Complaint: He states that right before his arrival here he was cutting up a deer that he has killed when he slipped and cut his left palm with the knife. He has a laceration on his left hand. He denies any numbness or his hand. He denies any difficulty moving his hand or fingers. His tetanus immunization is not up to date. - Related Data Home Medications Medication Instructions Recorded Confirmed omeprazole 40 mg capsule,delayed 40 mg PO DAILY 90 Days #90 cap 10/31/18 06/28/21 release Previous Rx's Medication Instructions Recorded cephALEXin [cephALEXin 500mg 500 mg PO Q6H 10 Days #40 cap 07/26/21 capsule] Allergies Allergy/AdvReac Type Severity Reaction Status Date / Time No Known Allergies Allergy Verified 06/28/21 09:55 - Worker's Comp Is this a Worker's Comp case?: No [facility] History - Hepatitis A Screen Drug use history?: No High risk sexual behaviors?: No History of sexually transmitted infection?: No Currently employed?: No Childcare worker?: No Do you have indoor plumbing?: Yes Do you have electricity?: Yes Attestation statement:: This patient has been screened for Hepatitis A risk factors. I have reviewed the patient's past medical history: Yes 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: Reports:: Gastroesophageal Reflux Disease(GERD) Denies:: Cancer, Diabetes Mellitus Type 1, Diabetes Mellitus Type 2, Internal Pacemaker, MRSA, Seizures Other Surgeries: Yes: Colonoscopy, EGD, Other. No: Pacemaker Amputation: No Fractures: No Comment: polyps removed fr
[2021-07-26 22:33] VITALS: BP 156/102; PULSE 95; RESP 16; TEMP 36.7
== END 2021-07-26 22:41 | disposition home or self-care (01) ==
PROVIDERS: Emergency Provider Nurse Practitioner Family; PCP Emergency Medicine
DX: S61.412A Laceration without foreign body of left hand, initial encounter (principal); W26.0XXA Contact with knife, initial encounter; Y92.018 Other place in single-family (private) house as the place of occurrence of the external cause; Z23 Encounter for immunization; K21.9 Gastro-esophageal reflux disease without esophagitis
CPT/HCPCS: 12002; 90715; 96372; 99202; G0463

== ENCOUNTER → 2021-08-01 10:24 | Outpatient (CLI) | payer BC, SELFPAY ==
--- NOTE | 2021-08-01 10:26 | XR_ITS ---
PROCEDURE: XR RIBS LT MIN 3V W CXR1V CLINICAL INDICATION: RIB PAIN ON LT SIDE, RIB INJURY COMPARISON: CT CHW CT CHEST W/ CONTRAST from 03/01/2013 CR XR CHEST PORTABLE from 06/21/2021 FINDINGS: Frontal view of the chest shows no acute finding. No evidence of pneumothorax or pleural effusion. Three views of the left ribs show no fracture, dislocation, lytic or blastic change. IMPRESSION: Negative chest and left ribs. If symptoms persist, CT with 3D reformats may provide further evaluation. Dictated by: Casimiro Wetzel MD 08/01/2021 10:50 Casimiro Wetzel MD in OV 08/01/2021 10:50
== END ==
PROVIDERS: PCP Nurse Practitioner Family; Visit Provider Nurse Practitioner Family
DX: R07.81 Pleurodynia (principal); S29.9XXA Unspecified injury of thorax, initial encounter
CPT/HCPCS: 71101

== ENCOUNTER 2021-08-05 10:43 | Emergency (ER) | payer BC, SELFPAY ==
[2021-08-05 11:29] VITALS: BP 138/105; PULSE 93; RESP 20; TEMP 36.9; O2SAT 95; BMI 32.2
--- NOTE | 2021-08-05 11:45 | HMH.EDUTC ---
[facility] [place] Disposition Clinical Impression: Sinusitis Qualifiers: Sinusitis location: unspecified location Chronicity: acute Recurrence: non-recurrent Qualified Code(s): J01.90 - Acute sinusitis, unspecified Acute bronchitis Qualifiers: Bronchitis organism: unspecified organism Qualified Code(s): J20.9 - Acute bronchitis, unspecified Disposition: Home, Self-Care Condition on Discharge: Good Instructions: DI for Sinusitis, DI for Acute Bronchitis Additional Instructions: Drink plenty of fluids. Take tylenol or ibuprofen for pain or fever. Take the medications as directed. Follow up with your regular doctor. GO TO THE ER FOR ANY WORSENING SYMPTOMS Don't start the oral steroids until tomorrow, since you had the shot here today. Prescriptions: Promethazine/Dextromethorphan [Promethazine-Dm Syrup] 5 ml PO Q6HP PRN #240 ml PRN Reason: Cough Transmission Status: Received by [id number] Amoxicillin/Potassium Clav [Augmentin 875-125 Tablet] 1 tab PO Q12H 10 Days #20 tab Transmission Status: Received by [id number] methylPREDNISolone [Medrol] 4 mg PO DIRECTED 6 Days #21 packet Transmission Status: Received by [id number] Referrals: Kelsie Garcia APRN [Primary Care Provider] - Time of Disposition: 12:05 Medical Decision Making - Medical Records Medical records reviewed: No: I reviewed the patient's medical records. - Erik Inquiry Pt receiving controlled substance: No Vital Signs: 08/05/21 11:29 08/05/21 12:04 Temperature 98.4 F 98.4 F Temperature Source Oral Pulse Rate 93 H Pulse Rate [Left] 93 H Respiratory Rate 20 20 Blood Pressure 138/105 H Blood Pressure [Right Arm] 138/105 H Blood Pressure Mean [Right Arm] 116 02 Sat by Pulse Oximetry 95 - Lab Data Lab results reviewed: Yes: I reviewed the patient's lab results. Orders (Tests/Meds): ED MEDICATIONS Discontinued Medications Generic Name Dose Route Start Last Admin Trade Name Freq PRN Reason Stop Dose Admin Ceftriaxone Sodium 1 gm 08/05/21 11:56 08/05/21 12:06 Ceftriaxone 1gm Vial IM 08/05/21 11:57 1 gm ONCE ONE Administration Lidocaine HCl 0 ml 08/05/21 11:56 08/05/21 12:07 Lidocaine 1% 5ml Pf Vial IM 08/05/21 11:57 2 ml ONCE ONE Administration Methylprednisolone Sodium Succinate 125 mg 08/05/21 11:56 08/05/21 12:06 Methylprednisolone Sod Succ 125mg Vial IM 08/05/21 11:57 125 mg ONCE ONE Administration [facility] [place] HPI - General Stated complaint: sinus pressure Time Seen by Provider: 08/05/21 11:45 Mode of Arrival: Ambulatory Source of Information: Patient Limitations: No Limitations Description of Symptoms (Recalled from Triage Doc. by RN): pt c/o nasal drainage, cough and chest congestion x2 days. HEENT Symptoms (Recalled from RN notes): Yes (nasal drainage) Resp Symptoms (Recalled from RN notes): Yes (cough and chest congestion) Skin Symptoms (Recalled from RN notes): No MS Symptoms (Recalled from RN notes): No Functional Status (Recalled from RN notes): wnl - History of Present Illness Provider Complaint: He states that over the past 2 days, he has had worsening sinus congestion. He also can feel congestion starting in his chest. He gets bronchitis kind of easily this time of year, so he is afraid that he is going to get sicker. He denies any shortness of breath. He is tested weekly for covid-19 at his job at [employer]. He had a negative test done yesterday at work. - Related Data Home Medications Medication Instructions Recorded Confirmed omeprazole 40 mg capsule,delayed 40 mg PO DAILY 90 Days #90 cap 10/31/18 06/28/21 release Previous Rx's Medication Instructions Recorded Amoxicillin/Potassium Clav 1 tab PO Q12H 10 Days #20 tab 08/05/21 [Augmentin 875-125 Tablet] Promethazine/Dextromethorphan 5 ml PO Q6HP PRN #240 ml 08/05/21 [Promethazine-Dm Syrup] methylPREDNISolone [Medrol] 4 mg PO DIRECTED 6 Days #21 08/05/21 alba
[2021-08-05 12:04] VITALS: BP 138/105; PULSE 93; RESP 20; TEMP 36.9
== END 2021-08-05 12:19 | disposition home or self-care (01) ==
LOC: ER 10:45 → UTC 10:48
PROVIDERS: Emergency Provider Nurse Practitioner Family; PCP Nurse Practitioner Family
DX: J01.90 Acute sinusitis, unspecified (principal); J20.9 Acute bronchitis, unspecified; K21.9 Gastro-esophageal reflux disease without esophagitis
CPT/HCPCS: 96372; 99202; G0463

== ENCOUNTER → 2021-09-19 11:11 | Outpatient (CLI) | payer BC, SELFPAY | PROVIDERS: Visit Provider Nurse Practitioner | DX: Z20.822 Contact with and (suspected) exposure to COVID-19 (principal) | CPT/HCPCS: C9803; U0003; U0005 ==

== ENCOUNTER 2022-06-02 09:14 | Emergency (ER) | payer BC, SELFPAY ==
[2022-06-02 09:40] VITALS: BP 141/83; PULSE 91; RESP 18; TEMP 37; O2SAT 99; BMI 28.3
--- NOTE | 2022-06-02 10:06 | EXP.UTC ---
Discharge Plan Disposition Patient Disposition: Home, Self-Care Condition: Good Prescriptions Prescriptions: New prednisone 20 mg tablet 20 mg PO BID 5 Days Qty: 10 0RF No Action omeprazole 40 mg capsule,delayed release(DR/EC) 40 mg PO DAILY 90 Days Qty: 90 promethazine-DM 120 ML syrup 5 ml PO Q6HP PRN (Reason: Cough) Qty: 240 0RF methylprednisolone 4 MG tablets,dose pack 4 mg PO DIRECTED 6 Days Qty: 21 0RF amoxicillin-pot clavulanate 1 EACH tablet 1 tab PO Q12H 10 Days Qty: 20 0RF Referrals Follow up/Referrals: Kelsie Garcia APRN [Primary Care Provider] - See instructions Activity Restrictions/Add. Instructions Additional Instructions/Restrictions: covid swab was sent to lab, call tomorrow for results. self isolate until test results are known to be negative No sign of a bacterial infection. Likely viral. Viruses can take 7-14 days to run their course. Nasal saline and bulb syringe or nose Tracy to remove nasal drainage to help with nasal congestion. Hard to eat, drink, sleep with nasal congestion so important to keep this cleaned out. Monitor temp. Tylenol or Motrin as needed for pain or fever Encourage fluids, water, Gatorade, Powerade, Pedialyte if /toddler/child Warm salt water gargles Warm fluids Sore throat lozenges Sleep elevated Humidifier/vaporizer Follow-up immediately for new or worsening symptoms or no noticeable improvement over the next 48-72 hours. Clinical Impressions Clinical Impression: Cough with exposure to COVID-19 virus Instructions Patient Instructions: Cough, DI for COVID-19 (Suspected or Confirmed ) Discharge ED Provider: Ashlie ([facility]Teena [facility] [place] HPI General Stated complaint: Covid+, Retest, Drainage, fever, diarrea Mode of Arrival: Ambulatory Source of Information: Patient Limitations: No Limitations Time Seen by Provider: 06/02/22 10:06 Description of Symptoms (Recalled from Triage Doc. by RN): PATIENT C/O RUNNY NOSE, COUGH, DIZZINESS, CHILLS, AND BODY ACHES SINCE YESTERDAY. REPORTS A POSITIVE AT HOME COVID TEST HEENT Symptoms (Recalled from RN notes): Yes Resp Symptoms (Recalled from RN notes): Yes Skin Symptoms (Recalled from RN notes): No MS Symptoms (Recalled from RN notes): No Functional Status (Recalled from RN notes): WNL History of Present Illness Provider Complaint: 51 yr old male presents for C/O RUNNY NOSE, COUGH, DIZZINESS, CHILLS, AND BODY ACHES SINCE YESTERDAY. REPORTS A POSITIVE AT HOME COVID TEST Related Data Home Medications Medication Instructions Recorded Confirmed omeprazole 40 mg capsule,delayed 40 mg PO DAILY GERD 90 days #90 10/31/18 06/28/21 release caps Previous Rx's Medication Instructions Recorded amoxicillin 875 mg-potassium 1 tab PO Q12H 10 days #20 tabs 08/05/21 clavulanate 125 mg tablet methylprednisolone 4 mg tablets in 4 mg PO DIRECTED 6 days #21 08/05/21 a dose pack packets promethazine-DM 6.25 mg-15 mg/5 mL 5 ml PO Q6HP PRN Cough #240 mL 08/05/21 oral syrup prednisone 20 mg tablet 20 mg PO BID 5 days #10 tabs 06/02/22 Allergies Allergy/AdvReac Type Severity Reaction Status Date / Time No Known Allergies Allergy Verified 06/28/21 09:55 Worker's Comp Is this a Worker's Comp case?: No PFSH PFSH 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
[2022-06-02 10:15] VITALS: BP 141/83; PULSE 91; RESP 18; TEMP 37; O2SAT 99
== END 2022-06-02 10:19 | disposition home or self-care (01) ==
PROVIDERS: Emergency Provider Nurse Practitioner Family; PCP Nurse Practitioner Family
DX: U07.1 COVID-19 (principal)
CPT/HCPCS: 99212; C9803; G0463; U0003; U0005

== ENCOUNTER 2023-06-19 08:06 | Emergency (ER) | payer BC, SELFPAY ==
[2023-06-19 08:08] VITALS: BP 153/90; PULSE 93; RESP 18; TEMP 36.9; O2SAT 97; BMI 33.0
--- NOTE | 2023-06-19 08:22 | XR_ITS ---
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 There is no acute fracture or dislocation. The joint spaces appear normal. There is a chronic 5th metacarpal fracture. Dorsal hand soft tissue swelling is seen. IMPRESSION: No acute process. Reviewed, Interpreted and Dictated by Lai Guzman III, MD Transcribed by Fang Hood Authenticated and [facility]
--- NOTE | 2023-06-19 08:22 | XR_ITS ---
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 There is no acute fracture or dislocation. There are mild degenerative changes. No soft tissue abnormality is identified. IMPRESSION: No acute process. Reviewed, Interpreted and Dictated by Lai Guzman III, MD Transcribed by Fang Hood Authenticated and [facility]
--- NOTE | 2023-06-19 08:27 | PC.NURSE ---
Called RAD about xray
--- NOTE | 2023-06-19 08:37 | EXP.UTC ---
Discharge Plan Disposition Patient Disposition: Home, Self-Care Condition: Good Prescriptions Prescriptions: No Action omeprazole 40 mg capsule,delayed release(DR/EC) 40 mg PO DAILY 90 Days Qty: 90 Referrals Follow up/Referrals: Kelsie Garcia APRN [Primary Care Provider] - See instructions Activity Restrictions/Add. Instructions Additional Instructions/Restrictions: *RICE, Rest the extremity, Ice 15-20 minutes 3-4 times daily, Compress- wear the donaldo wrap as discussed as much as possible to help reduce swelling and pain, Elevate the extremity when at rest *Donaldo wrap is for support and help control swelling, use it except in the shower. Be sure that is not to tight but not to loose either *Elevate when resting? *Ibuprofen 600-800mg every 6-8 hours as needed for pain an inflammation. If need something more can take Tylenol in between doses of Ibuprofen to help Immediately follow up with your family doctor for new or worsening of symptoms, or no noticeable improvement over the next 3-5 days Clinical Impressions Clinical Impression: Hand injury Qualifiers: Encounter type: initial encounter Laterality: right Qualified Code(s): S69.91XA - Unspecified injury of right wrist, hand and finger(s), initial encounter Stand Alone Forms Stand Alone Forms: Work/School Release Instructions Patient Instructions: How To Perform RICE (Rest, Ice, Compress, Elevate), Ibuprofen Discharge ED Provider: Kimberley Dean [facility] [place] HPI General Stated complaint: AO@home 06/08/23 RT hand pain Mode of Arrival: Ambulatory Source of Information: Patient Limitations: No Limitations Time Seen by Provider: 06/19/23 08:37 Description of Symptoms (Recalled from Triage Doc. by RN): Pt about two weeks again grazed his hand with a nail while placing a fence. He stated that his right hand is swollen, hurting, and has lost feeling on top of hand. 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 States that cut on top of his hand but it is looking better and not having any swelling or redness but he has had to call into work the last 3 days due to 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 to 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
[2023-06-19 10:39] VITALS: BP 153/90; PULSE 93; RESP 18; TEMP 36.9; O2SAT 97
== END 2023-06-19 10:38 | disposition home or self-care (01) ==
PROVIDERS: Emergency Provider Nurse Practitioner; PCP Nurse Practitioner Family
DX: S69.91XA Unspecified injury of right wrist, hand and finger(s), initial encounter (principal); W22.8XXA Striking against or struck by other objects, initial encounter
CPT/HCPCS: 73110; 73130; 99212; 99214; G0463